=== PATIENT | female | born 1930 | race Caucasian/White ===

== ENCOUNTER 2020-11-24 | Inpatient (IN) | payer MEDICARE, OTHER | END 2020-11-28 15:23 | DRG 522 | PROVIDERS: ADMIT Orthopaedic Surgery Orthopaedic Surgery of the Spine | PROC: 0SRR0JZ Replacement of Right Hip Joint, Femoral Surface with Synthetic Substitute, Open Approach (ICD-10-PCS; principal; 2020-11-25) | CPT/HCPCS: 36415; 71045; 73501; 73502; 80048; 80053; 81003; 85025; 85610; 85730; 88305; 88311; 93005; 94640; 94760; 96374; 96375; 99285 ==